=== PATIENT | male | born 1990 | race African-American/Black ===

== ENCOUNTER 2018-03-25 10:28 | Emergency (ER) | payer SELFPAY | END 2018-03-25 10:47 | disposition home or self-care (01) | LOC: ERS 10:28 | DX: J06.9 Acute upper respiratory infection, unspecified (principal); J45.909 Unspecified asthma, uncomplicated; F41.9 Anxiety disorder, unspecified; F31.9 Bipolar disorder, unspecified; F17.210 Nicotine dependence, cigarettes, uncomplicated | CPT/HCPCS: 99283 ==

== ENCOUNTER 2018-05-12 21:42 | Emergency (ER) | payer SELFPAY | END 2018-05-13 01:17 | disposition left against medical advice (07) | LOC: ERS 21:42 | DX: Z53.21 Procedure and treatment not carried out due to patient leaving prior to being seen by health care provider (principal) ==

== ENCOUNTER 2018-05-13 09:21 | Emergency (ER) | payer SELFPAY | END 2018-05-13 10:17 | disposition home or self-care (01) | LOC: ERS 09:21 | DX: K61.1 Rectal abscess (principal); J45.909 Unspecified asthma, uncomplicated; F41.9 Anxiety disorder, unspecified; F31.9 Bipolar disorder, unspecified | CPT/HCPCS: 99283 ==